=== PATIENT | female | born 1985 | race Caucasian/White ===

== ENCOUNTER 2016-08-09 00:06 | Emergency (ER) | payer SELFPAY ==
[~2016-08-09] VITALS: Ht 174 cm; Wt 136.0 kg
[2016-08-09 00:10] VITALS: Ht 174 cm; Wt 136.0 kg
[2016-08-09] MEDS ORDERED: TYL500 PO (00:21)
[2016-08-09] MEDS ORDERED: PEN500 PO (00:21)
[2016-08-09 00:44] VITALS: BP 148/78; PULSE 103; RESP 22; TEMP 98.6
--- NOTE | 2016-08-09 00:45 | ERD ---
ER Documentation Chief Complaint Date/Time DATE: 08/09/16 TIME: 00:43 Chief Complaint throat pain and swelling since Friday per patient verbatim HPI This is a 31-year-old female that presents to the ER with sore throat that started on Friday. Sore throat is constant and severe it is worse whenever she swallows. Patient denies any difficulty in breathing. She denies any headaches. She denies nausea or vomiting. Patient denies any cough. There are no sick contacts at home. ROS 12 point review of systems was done, all negative except per HPI. Medications Home Meds Active Scripts Acetaminophen* (Tylenol*) 500 Mg Tab, 1000 MG PO Q8H Y for PAIN AND OR ELEVATED TEMP for 3 Days, TAB Prov:NAIF GIANG 08/09/16 Penicillin V Potassium* (Penicillin V K*) 500 Mg Tab, 500 MG PO BID for 10 Days , TAB Prov:RAHATNAIF C 08/09/16 Allergies Allergies: Coded Allergies: No Known Allergy (Unverified , 08/09/16) PMhx/Soc Medical and Surgical Hx: pt denies Medical Hx, pt denies Surgical Hx History of Surgery: No Anesthesia Reaction: No Hx Neurological Disorder: No Hx Respiratory Disorders: No Hx Cardiac Disorders: No Hx Psychiatric Problems: No Hx Miscellaneous Medical Probl: No Hx Alcohol Use: No Hx Substance Use: No Hx Tobacco Use: No Physical Exam Vitals Vital Signs Date Time Temp Pulse Resp B/P Pulse Ox O2 Delivery O2 Flow Rate FiO2 08/09/16 00:10 97.1 102 18 149/72 98 Physical Exam GENERAL: The patient is well-developed, well-nourished, in no acute distress. NECK: Cervical spine is non tender with no step off. Supple, no nuchal rigidity HEENT: Atraumatic. Pupils equal, round and reactive to light. Extraocular muscles are grossly intact. Conjunctivae pink, no discharge. Bilateral tympanic membranes are clear with no evidence of erythema, effusion or dulling of the light reflex. Bilateral tonsillar exudate with no uvular deviation or kissing tonsils RESPIRATORY: Clear to auscultation bilaterally. There are no rales, wheezes or rhonchi. HEART: Regular rate and rhythm. No murmurs, clicks, rubs or gallops. NEUROLOGIC: Alert and oriented SKIN: There is no rash. The skin is warm and dry. Procedures/MDM This is a 31-year-old female that presents to the ER with sore throat. Patient does have strep throat. Suspicion for retropharyngeal or peritonsillar abscess is low. Patient is afebrile and well-appearing she does not have any difficulty in breathing. Patient is to follow-up with her primary care doctor within 1-2 days return to ER sooner if symptoms worsen. My medical decision making was shared with the patient understands and agrees with plan. Departure Diagnosis: Primary Impression: Strep throat Condition: Stable Patient Instructions: Preventing Common Respiratory Infections Additional Instructions: Call your primary care doctor TOMORROW for an appointment during the next 1-2 days.See the doctor sooner or return here if your condition worsens before your appointment time. NAIF GIANG Aug 09, 2016 00:45
== END 2016-08-09 00:45 | disposition home or self-care (01) ==
LOC: FTE 00:06
DX: J02.0 Streptococcal pharyngitis (principal)
CPT/HCPCS: 99283